=== PATIENT | female | born 2000 | race African-American/Black ===

== ENCOUNTER → 2023-09-05 | Outpatient (CLI) | payer OTHER ==
--- NOTE | 2023-09-05 10:03 | USB ---
Reason for Exam: Clinical finding. Technique: Method: Targeted. Findings: The area of palpable concern of both breasts, the axilla of both breasts and the retroareolar of both breasts were scanned. No solid or cystic masses are identified. Manage clinically. Overall Assessment: Negative, BI-RAD 1 Management: Screening Mammogram of both breasts at age 41. A clinical breast exam by your physician is recommended on an annual basis and results should be correlated with mammographic findings. This exam should not preclude additional follow-up of suspicious palpable abnormalities. Results were given to the patient verbally at the time of exam. Electronically signed and approved by: Liam Gamble M.D. [facility]
== END | disposition home or self-care (01) ==
LOC: RADUSWWP 08:59
PROVIDERS: ATTEND Family Medicine
DX: N63.10 Unspecified lump in the right breast, unspecified quadrant (principal); N63.20 Unspecified lump in the left breast, unspecified quadrant